=== PATIENT | female | born 1950 | race Caucasian/White ===

== ENCOUNTER → 2024-02-20 06:28 | Day surgery (SDC) | payer OTHER, SELFPAY ==
[2024-02-20 12:41] LABS: Glucose - Point of Care 112 mg/dl (70-99)
== END ==
LOC: GI 06:28
PROVIDERS: ATTENDING PHYSICIAN Internal Medicine Gastroenterology
DX: Z12.11 Encounter for screening for malignant neoplasm of colon (principal); R19.5 Other fecal abnormalities; K57.30 Diverticulosis of large intestine without perforation or abscess without bleeding; K64.8 Other hemorrhoids; D12.0 Benign neoplasm of cecum; D12.3 Benign neoplasm of transverse colon; K63.5 Polyp of colon; D12.8 Benign neoplasm of rectum
CPT/HCPCS: 45385; 88305; 82962

== ENCOUNTER → 2024-06-10 14:08 | Outpatient (REF) | payer MEDICARE, SELFPAY | LOC: WDC 14:08 | PROVIDERS: ATTENDING PHYSICIAN Nurse Practitioner Family | DX: Z12.31 Encounter for screening mammogram for malignant neoplasm of breast (principal); Z78.0 Asymptomatic menopausal state | CPT/HCPCS: 77063; 77067; 77080 ==

== ENCOUNTER → 2024-06-17 10:31 | Outpatient (REF) | payer MEDICARE, SELFPAY | LOC: WDC 10:31 | PROVIDERS: ATTENDING PHYSICIAN Nurse Practitioner Family | DX: R92.8 Other abnormal and inconclusive findings on diagnostic imaging of breast (principal) | CPT/HCPCS: 77065 ==

== ENCOUNTER → 2024-06-24 07:24 | Outpatient (REF) | payer MEDICARE, SELFPAY ==
--- NOTE | 2024-06-24 08:55 | OID.BR.INTR ---
[facility] Breast Navigator - Initial
- -
Date of Contact: 06/24/24
Met with patient. Patient given written information on navigator services available at [facility]. Will follow up as needed per protocol.
== END ==
LOC: WDC 07:24
PROVIDERS: ATTENDING PHYSICIAN Nurse Practitioner Family
DX: R92.1 Mammographic calcification found on diagnostic imaging of breast (principal)
CPT/HCPCS: 88305; 19081; 76098; A4648

== ENCOUNTER 2024-06-30 12:44 | Inpatient (IN) | payer MEDICARE, SELFPAY ==
--- NOTE | 2024-05-29 07:52 | CM ---
Addendum entered by Reba Goodrich 06/18/24 08:46:
Patient's surgery date was changed to 06/30. VN updated and start of care changed to 07/02.
Addendum entered by Reba Goodrich 06/17/24 08:59:
VN referral completed and sent to DO VN through [employer] with request for PT and SN services; start of care 06/25.
Original Note:
Patient is scheduled for an elective L TKR on 06/23/24. Spoke with patient prior to surgery via telephone. Introduced role of Orthopedic Navigator. Patient reports that she lives alone in a one story home. There are two steps to enter. She currently
functions independently. She has a cane. She has never had VN services. PCP is Sadie Darden.
Discussed orthopedic program and post surgical plans. Reviewed anticipated length of stay and that goal is for her to return home at discharge. Also reviewed outpatient PT. Patient is in agreement with tentative plan but will not have transportation
for outpatient PT and will need VN services. Options reviewed; patient selects VN. Her 14 year old granddaughter will stay with her when she first goes home.
Patient will complete online education.
Plan: Orthopedic Navigator will remain available to assist with the care of patient and will reassess discharge needs after surgery.
[2024-06-01 13:56] VITALS: BMI 34.5
[2024-06-23 12:56] VITALS: BMI 34.5
--- NOTE | 2024-06-29 12:36 | VNURNOTE ---
Called Jennifer, spoke to Dustin, requested copy of H&P to send to [facility] Intake office. Fax number provided.
Confirmed w/ Casi that patient has a rolling walker (borrowing from a friend) that she will be using, will not need Rx.
[2024-06-30] VITALS (11 sets, daily range): BP systolic 97–138; BP diastolic 58–99; BMI 34.5
[2024-06-30 13:28] LABS: Glucose - Point of Care 110 mg/dl (70-99)
[2024-06-30] MEDS: CELEBREX 200 MG PO (13:33)
[2024-06-30] MEDS: NORMOSOL-R 1000 IV ×2 (13:35→19:13)
[2024-06-30] MEDS: TYLENOL 650 MG PO ×2 (13:35→20:30)
--- NOTE | 2024-06-30 18:12 | OR.RPT ---
Operative Report
Operative Report
Anesthesia Type:
Spinal with peripheral block
Operative Indications:
Left knee DJD
Operative Findings :
Significant left knee DJD
Complications:
None
Implants:
Lazara persona size D tibia, size 7 cruciate retaining femur, size 10 ultracongruent poly, 32 mm patella
Procedure and Technique:
Left total knee arthroplasty
INDICATIONS FOR PROCEDURE:
73-year-old female who had failed extensive nonoperative treatment for left knee DJD including corticosteroid injections, viscosupplementation junctions activity modification, anti-inflammatory medications and physical therapy. She elected to
proceed with total knee arthroplasty given her failure of nonoperative treatment and continued symptoms. We discussed risks benefits and alternatives to surgery. We discussed the usual expected perioperative and postoperative course. After
discussion written informed consent was obtained for left total knee arthroplasty
OPERATIVE PROCEDURE:
Patient was seen identified in the preoperative holding area. All questions were addressed. Operative extremity was marked. She was taken to the operating room where spinal anesthesia was administered. She also underwent adductor canal block.
She was placed supine on operating room table. A bump was placed under the operative hip. Operative extremity was then prepped and draped in normal sterile fashion. Timeout was performed again identifying the correct operative extremity.
Preoperative antibiotics and TXA were addressed. Standard anterior process of the knee was taken with a medial parapatellar approach through deep tissue. Sharp dissection was carried through skin subcutaneous tissues deep fascial layer. Synovial
tissue and fat pad were removed from the joint. Distal femoral guide was then placed and distal femoral cut was performed. Tension was then turned to the tibial extramedullary guide was used. Approximately 2 mm was taken off of the medial tibial
plateau in line with the mechanical axis of the tibia. 4-in-1 cutting guide was then placed distal femur in line with the epicondylar axis and perpendicular to Whitesides line with approximately 3 degrees of external rotation referencing the
posterior condyles. Anterior posterior and chamfer cuts were then performed. The medial and lateral meniscus were then excised utilizing a laminar ear muff assembler. Attention was then turned to the patella and retropatellar surface was resurfaced. Trial
components were placed and found to be in appropriate position with appropriate tracking of the patella. Attention was then turned to the tibia which was then prepared according to technique guide. Implants were removed and wound was copiously
irrigated normal saline solution. Gloves were changed and cement was mixed. The tibial femoral and patellar components were placed with a trial poly with the knee in complete extension. After cement had hardened the poly was removed tourniquet
was deflated and hemostasis was achieved with electrocautery. Final 10 mm ultracongruent polyethylene liner was placed and knee was taken through range of motion found to be complete extension with good stability in both flexion and mid flexion and
complete extension. Satisfied with extent of surgery, wound was copiously irrigated normal saline solution as well as Betadine solution. Wound was closed in layered fashion utilizing #1 Vicryl for deep parapatellar layer. 2-0 Vicryl was used for
subcutaneous layer and navid for skin. Aquacel dressing and Adan bandage were applied. Anesthesia was versed patient was taken to PACU in stable condition. Postoperative plans include weightbearing to the patient's tolerance of the operative
extremity. DVT prophylaxis will consist of aspirin daily. Plan to see patient back 2 weeks upon discharge.
Disposition:
PACU stable condition
[2024-06-30 18:16] LABS: Glucose - Point of Care 97 mg/dl (70-99)
[2024-06-30] MEDS: DILAUDID 0.5 MG IV (18:32)
[2024-06-30] MEDS: DILAUDID 0.25 MG IV (18:52)
--- NOTE | 2024-06-30 19:30 | PTCARENOTE ---
Pt arrived to [facility] from PACU on a bed at 1930. Left knee TKA with primacell and michael wrap with scant amount of drainage. Pt AA&Ox3 and admission questions completed. Pt complained of pain, not requiring medication at this time. Oriented pt to room
and call arora within reach. Bed locked and in lowest position.
[2024-06-30] MEDS: ZOFRAN 4 MG IV (20:11)
[2024-06-30] MEDS: TORADOL 15 MG IV (20:12)
[2024-06-30] MEDS: NEURONTIN 600 MG PO (20:13)
[2024-06-30] MEDS: LIPITOR 20 MG PO (20:14)
[2024-06-30] MEDS: COLACE 100 MG PO (20:14)
[2024-06-30] MEDS: ASPIRIN 325 MG PO (20:14)
[2024-06-30] MEDS: TYLENOL PO ×3 (20:14→21:32)
[2024-06-30] MEDS: SENOKOT 17.2 MG PO (20:14)
[2024-06-30] MEDS: BACTROBAN 2% OINTMENT 1 APPLIC NASAL (20:43)
[2024-06-30] MEDS: ZOLOFT PO (21:32)
[2024-06-30] MEDS: GLUCOPHAGE PO (21:33)
[2024-06-30] MEDS: PEPCID 20 MG PO (21:38)
[2024-06-30] MEDS: ANCEF 5 IV (21:39)
[2024-06-30] MEDS: DESYREL 50 MG PO (21:39)
[2024-06-30] MEDS: GLUCOPHAGE 500 MG PO (21:48)
[2024-06-30 22:10] LABS: Glucose - Point of Care 132 mg/dl (70-99)
[2024-07-01] MEDS: TYLENOL 650 MG PO ×3 (00:28→08:41)
[2024-07-01 03:50] VITALS: BP 148/75
[2024-07-01] MEDS: ANCEF 5 IV (05:19)
[2024-07-01 07:21] LABS: Glucose - Point of Care 133 mg/dl (70-99)
[2024-07-01 07:32] VITALS: BP 143/71
[2024-07-01] MEDS: ASPIRIN 325 MG PO (08:39)
[2024-07-01] MEDS: BACTROBAN 2% OINTMENT 1 APPLIC NASAL (08:40)
[2024-07-01] MEDS: TORADOL 15 MG IV (08:41)
[2024-07-01] MEDS: CELEBREX 200 MG PO (08:41)
[2024-07-01] MEDS: COLACE 100 MG PO (08:41)
[2024-07-01] MEDS: SENOKOT 17.2 MG PO (08:41)
[2024-07-01] MEDS: FLUSH (NSS) 2 FLUSH IV (08:42)
[2024-07-01] MEDS: ZOLOFT 50 MG PO (08:42)
[2024-07-01] MEDS: ROXICODONE 5 MG PO (08:56)
--- NOTE | 2024-07-01 09:48 | CM ---
Addendum entered by Digna Vargas RN 07/01/24 09:51:
Patient's granddaughter will be staying with the patient during her recovery. The patient's [id number] will provide transportation home.
Original Note:
Reviewed the chart notes and spoke with the patient at the bedside. The patient resides alone in a one story home with two steps to enter. The patient has a cane and rolling walker. The patient has been set-up previously with VN services. The
patient confirmed her pharmacy of choice is the [facility]. CM continues to be available to patient/family and is monitoring medical plan for needs at discharge.
Plan: Discharge to home with VN services.
--- NOTE | 2024-07-01 10:02 | W.PN.ORTHO ---
Today's Communication / Plan
-
d/c
Assessment
.
Distal Motor Intact: Yes
Dressing:
Clean, dry and intact.
Plan
.
Surgery / Date: Gaby Kat 06/30/24
DVT Prophylaxis: Aspirin
Activity:
Out of bed.
PT/OT
Discharge Plan: Home w/ Outpatient PT
Subjective
.
.:
Patient resting comfortably.
Vital Signs and Labs
.
Vital Signs and Labs:
Temp Pulse Resp BP Pulse Ox
98.0 F 62 16 145/71 96
07/01/24 07:32 07/01/24 07:32 07/01/24 07:32 07/01/24 08:40 07/01/24 07:32
Non-invasive Hgb result: 10.4
Physical Exam
-
HEENT: No pallor, cyanosis, or jaundice. Throat clear.
NECK: Supple. No JVD.
RESPIRATORY: Lungs clear to auscultation.
CVS: S1, S2 normal. RRR.� No murmur, rub or gallop.
ABDOMEN: Soft, non-tender. No distension. BS+/normal.
EXTREMITIES: strength equal, no calf pain with palpation
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 No focal deficits. dental technician grossly intact
--- NOTE | 2024-07-01 10:07 | W.DS.TRANS ---
DC Summary - First Sampler
-
Discharge Instructions:
Discharge Diagnosis/Procedures L TKA Dr. Kat 06/30/24
Diet As tolerated
Activity With Walker
Driving Restrictions No driving
Bathing Restrictions OK to Shower
Instructions:
Stand-Alone Forms: Total Hip/Knee Replacement D/C
Changes to Home Medications: Yes
Discharge Medications:
DC Medications w/original date entered in [facility]
alprazolam 0.5 mg tablet,extended release 24 hr 0.5 mg PO PRN PRN anxiety 06/16/24
atorvastatin 20 mg tablet 20 mg PO DAILY High Cholesterol 06/16/24
calcium carbonate 500 mg-vitamin D3 3.125 mcg (125 unit) tablet 1 tab PO DAILY Supplement 06/16/24
cholecalciferol (vitamin D3) 25 mcg (1,000 unit) tablet (Vitamin D3) 25 mcg PO DAILY Supplement 06/16/24
diltiazem HCl 120 mg tablet,extended release 24 hr 120 mg PO DAILY Arrhythmia 06/16/24
gabapentin 300 mg tablet,extended release 24 hr 600 mg PO QPM Neurological Condition 06/16/24
mecobalamin (vitamin B12) 1,000 mcg chewable tablet 1,000 mcg PO WEEKLY Supplement 06/16/24
metformin 500 mg tablet 500 mg PO DAILY Diabetes 06/16/24
mupirocin 2 % topical ointment 1 applic topical BID Infection 06/16/24
sertraline 50 mg tablet 50 mg PO DAILY Depression 06/16/24
trazodone 50 mg tablet 50 mg PO HS Sleep 06/16/24
acetaminophen 325 mg capsule (Tylenol) 650 mg (2 x 325 mg) PO QID #2 caps 07/01/24
aspirin 325 mg tablet 325 mg PO DAILY blood clot prevention #1 tab 07/01/24
celecoxib 200 mg capsule 200 mg PO DAILY anti-inflammatory #14 caps 07/01/24
docusate sodium 100 mg capsule (Colace) 100 mg PO BID stool softner #1 cap 07/01/24
famotidine 20 mg tablet 20 mg PO HS GI prophylaxis #30 tabs 07/01/24
magnesium hydroxide 400 mg/5 mL oral suspension (Milk of Magnesia) 30 ml PO HS PRN Constipation #1 mL 07/01/24
oxycodone 5 mg tablet 5 mg PO Q6H PRN 1 tab moderate pain, 2 tabs severe pain #30 tabs 07/01/24
sennosides 8.6 mg tablet (Senokot) 17.2 mg (2 x 8.6 mg) PO BID laxative #2 tabs 07/01/24
Home Medication Changes
aspirin 325 mg tablet 325 mg PO DAILY blood clot prevention #1 tab 07/01/24�
celecoxib 200 mg capsule 200 mg PO DAILY anti-inflammatory #14 caps 07/01/24�
docusate sodium 100 mg capsule (Colace) 100 mg PO BID stool softner #1 cap 07/01/24�
famotidine 20 mg tablet 20 mg PO HS GI prophylaxis #30 tabs 07/01/24�
magnesium hydroxide 400 mg/5 mL oral suspension (Milk of Magnesia) 30 ml PO HS PRN Constipation #1 mL 07/01/24�
oxycodone 5 mg tablet 5 mg PO Q6H PRN 1 tab moderate pain, 2 tabs severe pain #30 tabs 07/01/24�
Pending Results: No
[2024-07-01] MEDS: GLUCOPHAGE 500 MG PO (10:26)
[2024-07-01 11:44] VITALS: BP 131/70
== END 2024-07-01 12:21 | disposition home health service (06) | DRG 470 ==
LOC: 2 SOUTH 12:44
PROVIDERS: ADMITTING PHYSICIAN Orthopaedic Surgery; FAMILY PHYSICIAN Nurse Practitioner Family
PROC: 0SRD0J9 Replacement of Left Knee Joint with Synthetic Substitute, Cemented, Open Approach (ICD-10-PCS; 2024-06-30)
DX: M17.12 Unilateral primary osteoarthritis, left knee (principal); Z79.82 Long term (current) use of aspirin
CPT/HCPCS: 36415; 73560; 82962; 87070; 93005; 97110; 97116; 97162; 97166; 97535; C1713; C1776

== ENCOUNTER → 2025-10-13 10:05 | Outpatient (REF) | payer MEDICARE, SELFPAY | LOC: WDC 10:05 | PROVIDERS: ATTENDING PHYSICIAN Nurse Practitioner Family | DX: N63.12 Unspecified lump in the right breast, upper inner quadrant (principal) | CPT/HCPCS: 76642; 77062; 77066 ==